=== PATIENT | male | born 1955 | race Caucasian/White ===

== ENCOUNTER 2017-04-06 15:50 | Emergency (ER) | payer OTHER ==
[~2017-04-06 15:50] MED LIST: ALPRAZOLAM0.25 M1 PO; AMOXIL500 MG PO; AZITHROMYCIN250 M1 PO; BACTRIM DS 8001 TAB PO; BENZONATATE200 M1 PO; CEPHALEXIN500 M3 PO; DULOXETINE HCL60 MG PO; ESCITALOPRAM OX10 MG PO; FUROSEMIDE40 M1 PO; FUROSEMIDE80 M1 PO; GABAPENTIN600 M1 PO; LISINOPRIL10 M1 PO; LYRICA100 M1 PO; LYRICA150 M1 PO; MELOXICAM15 M1 PO; METFORMIN HCL1000 M1 PO; NICOTINE PATCH1 EAC1 TOP; NORTRIPTYLINE H25 M2 PO; OXYCODONE-ACET1 EAC1 PO; OXYCODONE-ACET1 EACH PO; PERCOCET 10-321 EACH PO; PERCOCET 325 MG1 TA2 PO; PERCOCET 5-3251 EACH PO; PREDNISONE10 M2 PO; PROVENTIL HFA6.7 GM INH; RAPAFLO8 M1 PO; SYMBICORT 16010.2 GM INH; TRADJENTA5 M1 PO; TRAZODONE HCL100 M1 PO; VENTOLIN HFA18 GM INH
--- NOTE | 2017-04-06 16:30 | ED GENERAL ADULT ---
History of Present Illness General Chief Complaint: General Adult Stated Complaint: SIB MD MAYFIELD LOW BP Source: patient Exam Limitations: no limitations Vital Signs & Intake/Output Vital Signs & Intake/Output Vital Signs Date Time Temp Pulse Resp B/P B/P Pulse O2 O2 Flow FiO2 Mean Ox Delivery Rate 04/06 1943 101 19 146/73 96 Room Air 04/06 1730 96 Room Air 04/06 1609 98.0 106 18 99/63 97 Room Air Allergies Coded Allergies: NO KNOWN ALLERGIES (02/23/13) Reconcile Medications Albuterol Sulfate (Ventolin Hfa) 18 GM HFA.AER.AD 2 PUF INH Q4 PRN SHORTNESS OF BREATH Alprazolam 0.25 MG TABLET 1 TAB PO QPM PRN ANXIETY (Reported) Budesonide/Formoterol Fumarate (Symbicort 160-4.5 Mcg Inhaler) 10.2 GM HFA.AER.AD 2 PUF INH BID copd Duloxetine HCl 60 MG CAPSULE. 1 CAP PO DAILY NEUROPATHY (Reported) Escitalopram Oxalate 10 MG TABLET 1 TAB PO DAILY MENTAL HEALTH (Reported) Furosemide 80 MG TABLET 1 TAB PO DAILY DIURETIC (Reported) Gabapentin 600 MG TABLET 1 TAB PO TID NEUROPATHY (Reported) Linagliptin (Tradjenta) 5 MG TABLET 1 TAB PO DAILY DM II (Reported) Lisinopril 10 MG TABLET 1 TAB PO DAILY 0900 (Reported) Metformin HCl 1,000 MG TABLET 1 TAB PO BID DIABETES (Reported) Nortriptyline HCl 25 MG CAPSULE 1 CAP PO QPM NERVE PAIN (Reported) Oxycodone HCl/Acetaminophen (Oxycodone-Acetaminophen 10-325) 10 MG-325 MG TABLET 1 TAB PO Q4P PRN PAIN (Reported) Silodosin (Rapaflo) 8 MG CAPSULE 1 CAP PO QPM PROSTATE (Reported) Trazodone HCl 100 MG TABLET 1 TAB PO QPM SLEEP (Reported) Triage Note: [address] MAYFIELD FOR HYPOTENSION. HX LUNG CA. BP AT OFFICE SBP 70'S AND CURRENT BP 99/63. FELT DIZZY AT THE TIME BUT DENIES SYNCOPAL EPISODE. ENDORSES RECENT FALLS 3 AND 4 WEEKS AGO. HAS BEEN RECEIVING CHEMO AND RADIATION TREATMENTS, LAST TWO WEEKS AGO. ONCOLOGIST DR LOPEZ AND PULM IS SUSHANT, SURGEON IS DR JIMENEZ. AFEBRILE. SPEECH CLEAR IN TRIAGE. DENIES CP/SOB BUT APPEARS WEAK. Triage Nurses Notes Reviewed? yes Onset: Gradual Duration: day(s): Timing: recent history Injury Environment: doctors office Severity: moderate HPI: 62yo male with hx of DM, lung CA on chemo and radiation sent in by Dr Mayfield for hypotension at the office, 70s/50s. Patient complains of dizziness and dehydration x 1 week. He oncologist, Dr. Watson had patient d/c furosemide for dehydration for 5 days however he resumed this med 4 days ago. Patient required IV fluids last week at Dr. Watson's office. Patient states that he has episodes of dizziness, worse with standing up abruptly, causing him to fall twice, last fall was 2 weeks ago. Patient states that when he falls backwards onto his buttocks, he has had no head trauma or loss of consciousness. Patient reports no injury related to his falls. The patient denies chest pain, dyspnea on abdominal pain, vomiting, fevers, chills. (Amber Read) Past History Travel History Traveled to [place] past 21 day No Medical History Any Pertinent Medical History? see below for history Neurological: NONE EENT: NONE Cardiovascular: HTN, Respiratory: COPD Gastrointestinal: NONE Hepatic: NONE Renal: KIDNEY STONES Musculoskeletal: SPINE STENOSIS SLIPPED DISC SCIATIAC Psychiatric: NONE Endocrine: NIDDM NEUROPATHY DIABETES TYPE 2 Blood Disorders: NONE Cancer(s): LUNG CA History of MRSA: No History of VRE: No History of CDIFF: No Surgical History Surgical History: non-contributory, BOTH HIPS REPLACED SX TO LEFT SHOULDER Psychosocial History Who do you live with Spouse Services at Home None What is your primary language Polish Tobacco Use: Quit >30 days ago Daily Tobacco Use Amount/Type: => 5 Cigarettes daily ETOH Use: denies use Illicit Drug Use: denies illicit drug use Family History Family History, If Any: FATHER (Lung CA, DM). MOTHER (BRAIN ANEURYSM). SISTER (PE). Hx Contributory? No (Amber Read) Review of Systems Review of Systems Constitutional: Reports: see HPI. EENTM: Reports: no symptoms. Respiratory: Reports: see HPI. Cardiovascular: Reports: no symptoms. GI: Reports: no symptoms. Genitourinary: Reports: no symptoms. Musculoskeletal: Reports: see HPI. Skin: Reports: no symptoms. Neurological/Psychological: Reports: see HPI. Hematologic/Endocrine: Reports: no symptoms. Immunologic/Allergic: Reports: no symptoms. All Other Systems: Reviewed and Negative (Carmen ROBIN,Amber Melendez) Physical Exam Physical Exam General Appearance: well developed/nourished, no apparent distress, alert, awake Head: atraumatic, normal appearance Eyes: Bilateral: normal appearance, PERRL, EOMI. Ears, Nose, Throat: hearing grossly normal Neck: normal inspection, supple, full range of motion Respiratory: normal breath sounds, no respiratory distress, lungs clear, healed left posterior chest surgical scar Cardiovascular: regular rate/rhythm Peripheral Pulses: 2+ radial (R), 2+ radial (L) Gastrointestinal: normal bowel sounds, soft, non-tender, no organomegaly Back: normal inspection, normal range of motion Extremities: normal inspection, normal range of motion, no edema Neurologic/Psych: awake, alert, oriented x 3, national business director II-XII nml as tested Skin: intact, normal color, warm/dry Core Measures ACS in differential dx? Yes CVA/TIA Diagnosis: No Sepsis Present: No Sepsis Focused Exam Completed? No (Carmen ROBIN,Amber Melendez) Progress Differential Diagnoses I considered the following diagnoses in my evaluation of the patient: [ Orthostatic hypotension, presyncope, electrolyte abnormality, acute anemia] Plan of Care: Orders Procedure Date/time Status MISTAKE 04/06 1999 Active Add-on Test (ER Only) 04/06 1833 Active B-TYPE NATRIURETIC PEP (BNP) 04/06 1715 Complete TYPE & SCREEN (NOT X-MATCH) 04/06 1650 Active Add-on Test (ER Only) 04/06 1630 Active MISTAKE 04/06 1613 Active URINALYSIS 04/06 1613 Active TROPONIN LEVEL 04/06 1613 Complete COMPREHENSIVE METABOLIC PANEL 04/06 1613 Complete CBC WITHOUT DIFFERENTIAL 04/06 1613 Complete EKG 04/06 1612 Active Laboratory Tests 04/06/17 1715: Anion Gap 12, Estimated GFR > 60, BUN/Creatinine Ratio 12.5, Glucose 90, Calcium 9.0, Total Bilirubin 0.2, AST 12 L, ALT 26, Alkaline Phosphatase 54, Troponin I < 0.01, Pmj-R-Hydtavxfsse Pept 111, Total Protein 7.0, Albumin 3.7, Globulin 3.3 , Albumin/Globulin Ratio 1.1, CBC w Diff NO MAN DIFF REQ, RBC 2.85 L, MCV 97.3 H, MCH 33.3 H, MCHC 34.2, RDW 18.8 H, MPV 6.2 L, Gran % 62.4, Lymphocytes % 22.9, Monocytes % 13.6 H, Eosinophils % 0.7, Basophils % 0.4, Absolute Granulocytes 2.7, Absolute Lymphocytes 1.0 L, Absolute Monocytes 0.6, Absolute Eosinophils 0, Absolute Basophils 0 Patient is neurologically intact on physical exam. Orthostatic vital signs show + hypotension upon standing. Patient medicated with 1 L NS. Will recheck orthostatic vital signs following second liter. The patient was signed out to Dr. Bear pending labs and chest x-ray, repeat orthos Initial ED EKG: sinus rhythm @96bpm, incomplete RBBB, nonspecific ST changes Prior EKG: unchanged (01/15/17) Hand-Off Endorsed To: Raul Bear MD Endorsed Time: 1816 Pending: labs, other (orthos), Xray (Carmen ROBIN,Amber Melendez) Hand-Off Endorsed To: Jamar Ortega MD Endorsed Time: 1911 Pending: other (clinical response to fluids) (Raul Bear MD) CXR Impression: PATIENT: PAIGE CHRISTENSEN JR PRESENT AGE: 62 PATIENT ACCOUNT NO: [id number] : 53 LOCATION: [facility] ORDERING PHYSICIAN: Amber ROBIN SERVICE DATE: 04/06/17 EXAM TYPE: RAD - XRY-PORTABLE CHEST XRAY EXAMINATION: XR PORTABLE CHEST CLINICAL INFORMATION: Dehydration. COMPARISON: CT scan of the chest 01/15/2017. TECHNIQUE: Portable frontal view of the chest was obtained. FINDINGS: A pleural-based pulmonary mass within the left upper lobe remains essentially unchanged when compared to the CT scan of the chest from 01/15/2017. No new mass or consolidative disease. No pleural effusion or pneumothorax. The cardiac silhouette is enlarged but unchanged from prior imaging. No acute osseous finding. A right chest port is noted and there are cardiac leads that overlie the chest. IMPRESSION: Overall stable examination with an ill-defined mass within the left upper lobe. DICTATED BY: Ervin Pearson MD DATE/TIME DICTATED:04/06/171927 OCCUPATIONAL THERAPIST'S ASSISTANT: DANA DATE/TIME TRANSCRIBED:04/06/171927 CONFIDENTIAL, DO NOT COPY WITHOUT APPROPRIATE AUTHORIZATION. <Electronically signed in Other Vendor System> SIGNED BY: Michel CARRASCO,Ervin Pat 04/06/171933 Comments: Orthostatic changes have resolved after IV hydration. Patient is asymptomatic. Patient was stable for discharge at this time. (Jordan CARRASCO,Jamar Dwyer) Departure Departure Condition: Stable Referrals: Hector Rodriguez MD (PCP/Family) Departure Forms: Customer Survey General Discharge Information (Amber Read) Departure Clinical Impression Primary Impression: Orthostatic hypotension Secondary Impressions: Anemia, Dizziness, Pre-syncope PA/ED TRANSPORTER Co-Sign Statement Statement: ED Attending supervision documentation- x I saw and evaluated the patient. I have also reviewed all the pertinent lab results and diagnostic results. I agree with the findings and the plan of care as documented in the PA's/ED TRANSPORTER's documentation. Hx SCca of lung with XRT, DM CHF on diuretics with hypotension at cardiology office. + orthostatic VS and anemia. IVF bolus given will reassess afterwards. [] I have reviewed the ED Record and agree with the PA's/ED TRANSPORTER's documentation. [] Additions or exceptions (if any) to the PAs/ED TRANSPORTER's note and plan are summarized below: [] (Chema CARRASOC,Raul) Departure Disposition: HOME OR SELF CARE Additional Instructions: RETURN IF SYMPTOMS WORSEN OR FOR ANY CONCERNS (Jordan CARRASCO,Jamar Dwyer) Critical Care Note Critical Care Note Critical Care Time: non-applicable (Amber Read)
[2017-04-06 17:35] LABS: ABSOLUTE BASOPHIL COUNT 0 /CUMM (0.0-0.2); ABSOLUTE EOSINOPHIL COUNT 0 /CUMM (0.0-0.7); ABSOLUTE GRANULOCYTE CT 2.7 /CUMM (1.4-6.5); ABSOLUTE MONOCYTE COUNT 0.6 /CUMM (0.10-0.60); HEMATOCRIT 27.8 % (42-52); MEAN CORPUSCULAR HGB 33.3 PG (27.0-31.0); MEAN CORPUSCULAR HGB CONC 34.2 G/DL (33.0-37.0); MEAN CORPUSCULAR VOLUME 97.3 FL (80.0-94.0); MEAN PLATELET VOLUME 6.2 FL (7.4-10.4); PLATELET COUNT 386 /CUMM (130-400); RBC DISTRIBUTION WIDTH 18.8 % (11.5-14.5); RED BLOOD CELL CT 2.85 /CUMM (4.70-6.10); WHITE BLOOD CELL COUNT 4.4 /CUMM (4.8-10.8)
[2017-04-06 17:49] LABS: BASOPHIL % 0.4 % (0.0-2.0); EOSINOPHIL % 0.7 % (0-5); GRANULOCYTE % 62.4 % (42.2-75.2)
--- NOTE | 2017-04-06 19:34 | RADIOLOGY REPORT ---
EXAMINATION: XR PORTABLE CHEST CLINICAL INFORMATION: Dehydration. COMPARISON: CT scan of the chest 01/15/2017. TECHNIQUE: Portable frontal view of the chest was obtained. FINDINGS: A pleural-based pulmonary mass within the left upper lobe remains essentially unchanged when compared to the CT scan of the chest from 01/15/2017. No new mass or consolidative disease. No pleural effusion or pneumothorax. The cardiac silhouette is enlarged but unchanged from prior imaging. No acute osseous finding. A right chest port is noted and there are cardiac leads that overlie the chest. IMPRESSION: Overall stable examination with an ill-defined mass within the left upper lobe.
[2017-04-06 19:43] VITALS: BP 146/73
== END 2017-04-06 21:51 ==
LOC: ERH 15:50
PROVIDERS: Emergency Medicine
DX: I95.1 Orthostatic hypotension (principal); D64.9 Anemia, unspecified; R42 Dizziness and giddiness; R55 Syncope and collapse
CPT/HCPCS: 71045; 86902; 86920; 86922; 93005; 93010; 96360

== ENCOUNTER → 2017-06-12 | Day surgery (SDC) | payer OTHER ==
[~2017-06-12] VITALS: Ht 177.8 cm; Wt 111.1 kg
--- NOTE | 2017-06-12 08:54 | Operative Report ---
Operative/Inv Procedure Report Surgery Date: 06/12/17 Name of Procedure: 1. Excision soft palate lesion- nasopharyngeal side 2. Direct micro-laryngoscopy with excision of vocal cord lesion, left Pre-Operative Diagnosis: 1. Soft palate lesion, nasopharyngeal side 2. Vocal cord lesion, left Post-Operative Diagnosis: Same Estimated Blood Loss: less than 50ml Surgeon/Manager Development: Cinthya Riddle MD Anesthesia: general endotracheal tube Specimens: 1. Vocal cord lesion, left 2. Soft palate lesion, nasopharyngeal side Microbiology: none Complications: none Condition: Stable on leaving the OR Operative Indication: Patient underwent a PET scan for evaluation of his lung lesion PET scan showed uptake in the oropharyngeal region Examination revealed a verrucous like lesions on the nasopharyngeal part of soft palate In addition on exam there was a hyperkeratotic -like lesion on left vocal cord Patient now presents for excision of soft palate lesion and left vocal cord lesion Operative/Procedure Note Note: Patient was brought to the operating room. Placed on the operating table in supine position. First timeout was performed including patient's name, ID number and planned procedure. Then general oroendotracheal anesthesia was induced. Endotracheal tube was used and it was secured with tape over the left lip commissure. Next patient was positioned for microlaryngoscopy. Operating room table was rotated 90 away from the anesthesia team toward patient's right. Head was sterilely draped. Prior to direct laryngoscopy, oropharynx was inspected. Mouth gag was introduced into patient's oral cavity and tongue retracted with downward. Soft palate was elevated and on the nasopharyngeal side there were multiple scattered verrucous like lesions. At first injection of the palate was carried with 1% lidocaine with 1 100,000 epinephrine. Approximately 6 mL of the solution was injected for vasoconstriction purposes. Mouth gag was removed and the laryngoscopy was carried. Anterior commissure laryngoscope was then used and laryngoscopy was performed. A dental guard was used for protection of the upper teeth. The anterior commissure laryngoscope was introduced into the oral cavity, oropharynx, hypopharynx and larynx. Examination of the larynx and hypopharynx was then carried. Base of tongue, valleculae appeared to be clear both right and left piriform sinuses were clear. Epiglottis over the lingual and laryngeal surfaces was clear. Aryepiglottic folds were intact. Glottis was visualized. Right vocal cord was clear. Left vocal cord had early hyperkeratotic changes over the mid surface. Posterior commissure was clear. Laryngoscope was fixed in place with suspension arm and microscope was brought into view for visualization of the vocal cords.. Bleeding was controlled by application of cotton pledgets saturated with topical adrenaline. This followed by application of bismuth powder, a minute amount followed by another application cotton pledget with adrenaline. At the end of the procedure there was no bleeding. Microscope was withdrawn. Laryngoscope was dismounted from the suspension apparatus and removed. Laryngoscopy surgery was completed. Next, oropharynx was exposed again with a mouth gag for excision of soft palate lesion. The lesion was entirely located on the nasopharyngeal side of the soft palate. There was scattered verrucous like lesions, mostly pedunculated. The size varied from about 11 cm to 2 x 2 cm in size. Soft palate was intermittently retracted with a rubber red rubber catheter as well as tonsillar pillar. Base of each lesion was grasped with forceps and excised with scissors this was done repeatedly at first over the right side of soft palate followed by the left side of soft palate. There was additional high lesion which was difficult to access through the oropharynx. At this point decision was made to ablate the upper verrucous like lesion with suction Bovie. . In addition, suction Bovie cautery was used on the base of the excised sites were observed on excision sites for cautery ablation of the lesions. At the end there was no bleeding. All all the lesions were removed. Surgery was completed. Stomach was suctioned with an OG tube. The patient was reawakened, extubated and taken to the recovery room in good condition. There were no complications. Estimated blood loss was 20 mL. Findings: Vocal cord, leftmid surface - hyperkeratotic-like lesion Soft palate nasopharyngeal side verrucous-like lesions mostly pedunculated varying in size from 1 x 1 cm to 2 x 2 cm Discharge Disposition: PACU
== END ==
LOC: STS 01:47
DX: C34.90 Malignant neoplasm of unspecified part of unspecified bronchus or lung (principal); D14.1 Benign neoplasm of larynx; D10.6 Benign neoplasm of nasopharynx; J31.2 Chronic pharyngitis; Z87.891 Personal history of nicotine dependence; I10 Essential (primary) hypertension; E11.9 Type 2 diabetes mellitus without complications; Z79.84 Long term (current) use of oral hypoglycemic drugs; Z86.711 Personal history of pulmonary embolism
CPT/HCPCS: C9399; J0171; J1100; J2250; J2405

== ENCOUNTER → 2017-07-10 | Day surgery (SDC) | payer OTHER ==
[~2017-07-10] MED LIST changes: +ALPRAZOLAM0.5 M4 PO; +ANORO ELLIPTA1 EACH INH; +ENOXAPARIN100 MG/1 M SC; +LEXAPRO20 M1 PO; +MORPHINE SULFAT30 M3 PO; +NEURONTIN800 M2 PO
[2017-07-10 09:05] LABS: ABSOLUTE BASOPHIL COUNT 0 /CUMM (0.0-0.2); ABSOLUTE EOSINOPHIL COUNT 0.2 /CUMM (0.0-0.7); ABSOLUTE GRANULOCYTE CT 4.6 /CUMM (1.4-6.5); ABSOLUTE LYMPH COUNT 1.1 /CUMM (1.2-3.4); ABSOLUTE MONOCYTE COUNT 0.5 /CUMM (0.10-0.60); BASOPHIL % 0.2 % (0.0-2.0); EOSINOPHIL % 3.2 % (0-5); HEMATOCRIT 35.7 % (42-52); MEAN CORPUSCULAR HGB 31.2 PG (27.0-31.0); MEAN CORPUSCULAR HGB CONC 32.6 G/DL (33.0-37.0); MEAN CORPUSCULAR VOLUME 95.8 FL (80.0-94.0); PLATELET COUNT 472 /CUMM (130-400); RBC DISTRIBUTION WIDTH 15.1 % (11.5-14.5); RED BLOOD CELL CT 3.73 /CUMM (4.70-6.10); WHITE BLOOD CELL COUNT 6.4 /CUMM (4.8-10.8)
--- NOTE | 2017-07-10 12:33 | Operative Report ---
Operative/Inv Procedure Report Surgery Date: 07/10/17 Name of Procedure: Excision bilateral inguinal hidradenitis with local advancement flap Pre-Operative Diagnosis: Hidradenitis Post-Operative Diagnosis: Same Estimated Blood Loss: 250 Surgeon/Prison Guard: Tariq CARRASCO,Jin Gibson Anesthesia: laryngeal mask airway Drains: Elise bilateral Specimens: Skin and subcutaneous tissue Operative/Procedure Note Note: After consent patient brought to the operating room laid supine. General anesthesia was obtained is placed in lithotomy position. We began on the right side and marked the area of induration. There is significant amount of purulence with multiple sinus tracts and abscess cavities. We marked a T type excision site measuring 20 x 15 cm. There is infiltrated local anesthesia and incision made sharply. Subcutaneous tissues were dissected with cautery. The dissection was quite difficult due to the significant inflammatory reaction around all these abscess cavities. There is significant tracking below the skin. Skin flaps are created to excise this while sparing the overlying healthy skin. Once the infectious tissue was removed the wound was irrigated with saline. Hemostasis achieved with cautery. The skin defect was fairly large therefore circumferential skin flaps were created to allow closure. It was then closed in a T type fashion with a running horizontal mattress suture using 3-0 nylon. [place] drain was placed and anchored to the skin posteriorly. Turned attention to the contralateral side. In a similar fashion the T-shaped incision site was created and very infiltrated local anesthesia. Skin was excised sharply and en bloc resection of the skin and inflamed and abscessed subcutis tissue was removed and passed off the field. Wound was irrigated with saline and hemostasis achieved with cautery. In a similar fashion local advancement flaps were created circumferentially with cautery. The skin was closed in similar fashion. A drain was placed similarly. Bacitracin ointment was applied and sterile dressings placed. Sponge and needle counts are correct CC: Hector Rodriguez MD
== END ==
LOC: STS 07:00
PROVIDERS: Surgery
DX: L73.2 Hidradenitis suppurativa (principal); E11.40 Type 2 diabetes mellitus with diabetic neuropathy, unspecified; Z79.84 Long term (current) use of oral hypoglycemic drugs; C34.90 Malignant neoplasm of unspecified part of unspecified bronchus or lung; I10 Essential (primary) hypertension; I45.10 Unspecified right bundle-branch block; Z86.711 Personal history of pulmonary embolism; Z87.891 Personal history of nicotine dependence
CPT/HCPCS: 36415; C9399; J0131; J1170; J2250; J3010; J3490